=== PATIENT | male | born 1995 | race Caucasian/White ===

== ENCOUNTER 2017-12-19 21:51 | Emergency (ER) | payer OTHER, SELFPAY ==
[2017-12-19 22:33] VITALS: BP 99/56; PULSE 54; RESP 16; TEMP 36.3; O2SAT 100; BMI 22.8
--- NOTE | 2017-12-20 00:34 | ED_ITS ---
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 The edging on this tubing is very sharp. He brushed his right wrist against the tube. He sustained a laceration to the right ulnar wrist. Range of motion in the wrist is normal. He is right- hand dominant. There is no active bleeding or deformity. His tetanus is up-to- date. Related Data Previous Rx's Medication Instructions Recorded cephalexin [Keflex] 500 mg PO TID 5 Days #0 cap 07/03/16 diphenoxylate-atropine 1 tab PO Q4HP PRN #14 tab 01/16/17 Allergies Allergy/AdvReac Type Severity Reaction Status Date / Time Penicillins [PENICILLINS] Allergy Unknown Verified 12/19/17 22:38 Review of Systems Review of Systems All systems reviewed & are unremarkable except as noted in HPI and below Constitutional Reports as per HPI, Denies fatigue, Denies weakness and Reports other (No recent illness.) Musculoskeletal Denies numbness and Reports other Integumentary/Breasts Denies rash, Denies skin pain, Denies skin ulcer, Denies sores and Reports other (As noted in the right upper extremity notation) Neurologic Denies numbness and Denies weakness Endocrine Denies fatigue FOR[facility]LY [facility] Social History Smoking Status: Never smoker Exam Initial Vital Signs Initial Vital Signs: Vital Signs Temperature 97.4 F L 12/19/17 22:33 Pulse Rate 54 L 12/19/17 22:33 Respiratory Rate 16 12/19/17 22:33 Blood Pressure 99/56 L 12/19/17 22:33 Pulse Oximetry 100 12/19/17 22:33 Const General: cooperative and well developed Nutritional Appearance: well nourished Orientation: alert, awake and oriented x3 Skin General: no rashes or lesions noted Neuro General: alert, oriented x3, gait normal and no focal motor deficits Extrem General: other Procedures Laceration Repair Laceration 1: Site: other (wrist) Side (If applicable): right Size (cm): 9 Description: linear Depth: simple, single layer Local Anesthetic: lidocaine 1% Amount of anesthesia used (mL): 5 Pre-repair: wound explored, irrigated extensively and deep structures intact Skin layer closed with: nylon Size (cm): 5-0 Number of sutures: 18 Technique: simple, interrupted Course Vital Signs - 8 hr // 22:33 Temperature 97.4 F L Pulse Rate 54 L Respiratory Rate 16 Blood Pressure 99/56 L Pulse Oximetry 100 Discharge Plan Departure Patient Disposition: Home, Self-Care Clinical Impression: Laceration of right wrist Instructions: DI for Laceration Repair Activity Restrictions/Additional Instructions: Keep the bandage in place for 2 days. You may shower/cleanse the wound after 2 days. See your doctor for suture removal in 10 days. Return here if necessary. Prescriptions: No Action cephalexin [Keflex] 500 MG capsule 500 mg PO TID 5 Days Qty: 0 RF: 0 diphenoxylate-atropine 2.5 MG/0.025 MG tablet 1 tab PO Q4HP PRNQty: 14 RF: 0
[2017-12-20 01:56] VITALS: BP 104/68; PULSE 54; RESP 18; TEMP 36.3; O2SAT 99
== END 2017-12-20 01:57 | disposition home or self-care (01) ==
PROVIDERS: Emergency Provider Emergency Medicine
DX: S61.511A Laceration without foreign body of right wrist, initial encounter (principal); W26.9XXA Contact with unspecified sharp object(s), initial encounter; Y99.0 Civilian activity done for income or pay
CPT/HCPCS: 12004; 99282; 99283

== ENCOUNTER → 2018-09-19 15:36 | Outpatient (CLI) | payer OTHER, SELFPAY ==
--- NOTE | 2018-09-19 | DI.MRI.S_ITS ---
PROCEDURE: MR HEAD/BRAIN WO CON INDICATIONS: Headache TECHNIQUE: Noncontrast axial T1 spin echo, axial T2 fast spin echo, sagittal and axial FLAIR, coronal T2 fast spin echo, axial gradient echo, axial diffusion and ADC through the brain. The patient declined contrast administration. COMPARISON: [facility], CR, XR EYE FOREIGN BODY RT, 09/19/2018, 15:52. FINDINGS: Image quality: Excellent. CSF Spaces: Basal cisterns are patent. No extra-axial fluid collections. Ventricles are normal in size and shape. Brain: No intracranial masses or hemorrhage. Scherer/white matter interface is normal. Brainstem appears normal. Diffusion-weighted images demonstrate no acute ischemic insult. There are a few foci of T2 hyperintensity seen within the periventricular and deep white matter and also within the juxtacortical white matter. No involvement of the corpus callosum or brain stem can be seen. No involvement of the cerebellum is seen. Normal intravascular flow voids are present. Skull and face: Calvarium has normal marrow signal. Orbits appear normal. Sinuses: Sinuses and mastoids are clear. IMPRESSION: A cause of headaches is not observed. T2 hyperintense white matter lesions are seen. Differential diagnosis includes sequela of migraine headaches in this patient with this given history, a demyelinating process (including multiple sclerosis), diabetes, and Lyme disease. Dictated by: Haja Montilla M.D. on 09/19/2018 at 15:39 Approved by: Haja Montilla M.D. on 09/19/2018 at 15:41
--- NOTE | 2018-09-19 | DI.RAD.S_ITS ---
PROCEDURE: XR EYE FOREIGN BODY RT INDICATIONS: POSSIBLE METAL IN EYE IN BOTH EYES TECHNIQUE: A single view of the orbits was acquired. COMPARISON: None. FINDINGS: Soft tissues: No metallic foreign bodies are visualized around the orbits. Bones: Bony structures appear unremarkable. Visualized sinuses appear clear. IMPRESSION: No contraindication to MR scanning identified. Dictated by: Miguel Angel Rucker M.D. on 09/19/2018 at 16:05 Approved by: Miguel Angel Rucker M.D. on 09/19/2018 at 16:14
== END ==
PROVIDERS: Visit Provider Nurse Practitioner Family
DX: R51 Headache (principal); H53.8 Other visual disturbances; R41.3 Other amnesia; T15.91XA Foreign body on external eye, part unspecified, right eye, initial encounter
CPT/HCPCS: 70030; 70551

== ENCOUNTER → 2019-11-15 14:08 | Outpatient (CLI) | payer OTHER, SELFPAY ==
--- NOTE | 2019-11-15 | DI.US.S_ITS ---
PROCEDURE: US SOFT TISSUE HEAD AND NECK INDICATIONS: CHRONIC SIALOADENITIS TECHNIQUE: Real-time scanning was performed of the neck region of interest, with image documentation. COMPARISON: None. FINDINGS: Both parotid and submandibular glands demonstrate heterogeneous echotexture, raising possibility of diffuse inflammation. Shadowing echogenic foci present within both parotid glands may represent sialolithiasis measuring 4 x 2 x 4 mm on the right, and 3 x 2 x 2 mm on the left. There is possible mild dilatation of the right parotid duct measuring 2 mm. IMPRESSION: Sonographic findings suggest bilateral parotid sialolithiasis with possible mild dilatation of the right parotid duct as above. This could be more definitively assessed with CT as clinically necessary. Heterogeneous appearance of the parotid glands raises possibility of inflammation. Please correlate clinically Dictated by: Yon Hill M.D. on 11/15/2019 at 16:07 Approved by: Yon Hill M.D. on 11/15/2019 at 16:22
== END ==
PROVIDERS: Referring Provider Otolaryngology; Visit Provider Otolaryngology
DX: K11.23 Chronic sialoadenitis (principal)
CPT/HCPCS: 76536

== ENCOUNTER → 2020-10-31 08:58 | Outpatient (CLI) | payer OTHER, SELFPAY ==
--- NOTE | 2020-10-31 09:00 | DI.RAD.S_ITS ---
PROCEDURE: XR KNEE RT 3V INDICATIONS: RIGHT KNEE PAIN TECHNIQUE: 3 views of the knee were acquired. COMPARISON: None. FINDINGS: Bones: No fractures or dislocations. No suspicious bony lesions. Soft tissues: No joint effusion. No suspicious soft tissue calcifications. IMPRESSION: No fracture. No osseous lesion. If symptoms and/or clinical suspicion for pathology persists, further assessment with repeat radiographs (7-10 days) or advanced imaging (e.g. CT, MRI or bone scan) should be considered. Dictated by: Ginny Brito MD, PhD on 10/31/2020 at 9:17 Approved by: Ginny Brito MD, PhD on 10/31/2020 at 9:26
== END ==
PROVIDERS: Referring Provider Physician Assistant; Visit Provider Physician Assistant
DX: M25.561 Pain in right knee (principal)
CPT/HCPCS: 73562

== ENCOUNTER → 2021-01-17 10:37 | Outpatient (CLI) | payer OTHER, SELFPAY ==
--- NOTE | 2021-01-17 10:39 | DI.MRI.S_ITS ---
PROCEDURE: MR KNEE RT WO CON INDICATIONS: TEAR TECHNIQUE: Noncontrast sagittal PD fast spin echo and T2 fast spin echo with fat saturation, sagittal 3-D FLASH with fat saturation; coronal T1 spin echo and PD fast spin echo with fat saturation, and axial PD fast spin echo with fat saturation through the knee. COMPARISON: None. FINDINGS: Menisci: Medial meniscus: Oblique undersurface tear involving the body. Lateral meniscus: Intact. Cruciate ligaments: Anterior cruciate ligament: Intact. Posterior cruciate ligament: Intact. Medial structures: The medial collateral ligament: Intact. Semimembranosus tendon: Intact. Visualized pes anserinus tendons: Intact. Bursal fluid: none. Lateral structures: The lateral collateral ligament intact. Biceps femoris tendon appears intact. Popliteus tendon grossly unremarkable. Iliotibial band appears intact. Anterior structures: Quadriceps tendon: Intact. Medial patellofemoral ligament: Intact. Lateral patellofemoral ligament: Intact. Patellar tendon: Mild proximal tendinopathy. Anterior soft tissues: Prepatellar and superficial infrapatellar subcutaneous edema/fluid. Deep infrapatellar region: Normal. Bones and cartilage: Marrow: No focal marrow contusion or discrete low signal fracture line. Medial compartment: Mild partial thickness loss of the central weight-bearing femoral and tibial cartilage. Lateral compartment: No focal cartilage defect. Patellofemoral compartment: No chondral defect Joint space: Effusion: Small joint effusion. Popliteal fossa: Small Grover's cyst measuring 3 cm in the cephalocaudal dimension. Loose bodies: None. IMPRESSION: Medial meniscal tear involving the body. Mild proximal patellar tendinopathy Mild medial compartment joint degeneration Small joint effusion Small Grover's cyst. 2 Dictated by: Yon Hill M.D. on 01/19/2021 at 8:35 Approved by: Yon Hill M.D. on 01/19/2021 at 8:41
--- NOTE | 2021-01-17 10:40 | DI.RAD.S_ITS ---
PROCEDURE: XR ORBIT RT INDICATIONS: EXAMINATION PRE MRI TECHNIQUE: Single views of the orbits acquired. COMPARISON: None. FINDINGS: Bones: No fractures; orbital rims appear intact throughout. No suspicious bony lesions. Visualized sinuses appear clear. Soft tissues: No suspicious soft tissue calcifications or densities. IMPRESSION: No evidence of radiopaque foreign body. Patient is cleared for MRI Approved by: Soto Mai M.D. on 01/17/2021 at 10:25
--- NOTE | 2021-01-17 10:40 | DI.RAD.S_ITS ---
PROCEDURE: XR ORBIT LT INDICATIONS: EXAMINATION PRE MRI TECHNIQUE: Single views of the orbits acquired. COMPARISON: None. FINDINGS: Bones: No fractures; orbital rims appear intact throughout. No suspicious bony lesions. Visualized sinuses appear clear. Soft tissues: No suspicious soft tissue calcifications or densities. IMPRESSION: No evidence of radiopaque foreign body Approved by: Soto Mai M.D. on 01/17/2021 at 10:24
== END ==
PROVIDERS: Referring Provider Orthopaedic Surgery; Visit Provider Orthopaedic Surgery
DX: S83.281A Other tear of lateral meniscus, current injury, right knee, initial encounter (principal); M17.11 Unilateral primary osteoarthritis, right knee; M25.461 Effusion, right knee; M71.21 Synovial cyst of popliteal space [Baker], right knee; Z13.5 Encounter for screening for eye and ear disorders
CPT/HCPCS: 70200; 73721

== ENCOUNTER → 2021-08-03 13:48 | Outpatient (CLI) | payer OTHER, SELFPAY ==
[2021-08-03 16:48] LABS: COVID19 -Nasal RAPID Negative (Negative)
== END ==
PROVIDERS: Referring Provider Family Medicine Sleep Medicine; Visit Provider Family Medicine Sleep Medicine
DX: Z20.822 Contact with and (suspected) exposure to COVID-19 (principal)
CPT/HCPCS: 87635; C9803

== ENCOUNTER 2021-08-05 14:15 | Day surgery (SDC) | payer OTHER, SELFPAY ==
[2021-07-31 09:09] VITALS: BMI 25.2
[2021-08-05] VITALS (8 sets, daily range): BP systolic 82–121; BP diastolic 41–90; PULSE 50–62; RESP 11–16; TEMP 36.4–37.3; O2SAT 96–100; BMI 25.2
[2021-08-05] MEDS: LACTATED RINGERS 1,000 ML 84 ML IV ×2 (15:15→16:50)
--- NOTE | 2021-08-05 15:17 | PM.PREOP ---
Pre-operative Note COVID-19 COVID-19 status: Negative Result date/Date tested (Pos, Neg/Pending): 08/03/21 Criteria for continued procedure: Continuing or worsening of significant or severe pain and Non-surgical alternatives not available or appropriate per current SOC Interval Note History & Physical reviewed/Exam performed by Physician: Yes Changes to H&P: No
[2021-08-05] MEDS: CEFAZOLIN 2 GM/20 ML SYRINGE IV (15:55)
--- NOTE | 2021-08-05 16:08 | SUR.OPER ---
Supine on padded OR bed, head on pillow, arms secured on padded arm boards at <90 degrees abduction, legs uncrossed, safety belt at thigh, tape over blanket over lower legs.
[2021-08-05] MEDS: BUPIVACAINE 0.5% (PF) VIAL 30 ML INJ (16:25)
[2021-08-05] MEDS: MORPHINE 4 MG/ML INJ IM (16:25)
--- NOTE | 2021-08-05 16:42 | P.OP_ITS ---
Operative Date/Time/Diagnoses Date of procedure: 08/05/21 Time of procedure: 16:42 Pre-op diagnosis: Left knee medial meniscus tear and possible plica syndrome Post-op diagnosis: other (No plica syndrome) Procedure & Clinicians Procedure: Left knee arthroscopic partial medial meniscectomy Same procedure as scheduled: Yes Indications: The patient is a 26-year-old gentleman who injured his knee at work. He has not responded to non operative measures. After discussion the risks benefits and alternatives he has agreed to knee arthroscopy. He has an MRI which shows a medial meniscus tear. Risks discussed included but were not limited to: Failure to improve, stiffness, infection, nerve damage, deep venous thrombosis, pulmonary embolism, stroke, myocardial infarction, permanent paralysis, aspiration pneumonia and . Surgeon: Mirza Stevenson Click Yes if Unassisted: Yes Anesthesia Type: Spinal and Local Operative Notes Findings: 1. Normal suprapatellar pouch with the exception of a small suprapatellar plica which was excised incidentally. 2. Normal patellofemoral joint, no significant inflammation at the medial shelf plica. 3. Normal medial and lateral gutters. 4. Medial compartment notable for complex posterior horn medial meniscus tear part of this was hinged on the midportion of the meniscus and had flipped down into the tibial gutter below the joint line. 5. Intercondylar notch notable for normal ACL and normal visualized portion of the PCL. 6. Lateral compartment normal 7. Posterolateral compartment normal 8. Posterior medial compartment normal Closure Type: primary Specimen(s): none sent Estimated Blood Loss (mL): 10 Blood products transfused: none Tourniquet time (min): 0 Procedure in detail: Patient was seen in the preoperative area where he identified his left knee as the operative site this was marked with my initials. He was taken to the operating room and placed on the operating room table in a supine position where he underwent induction of a general anesthetic. He received preoperative antibiotics. A tourniquet was placed about his proximal left thigh. A manager multimedia-out was performed. His leg was prepared from the toes to the tourniquet with ChloraPrep in the usual fashion draped through sterile drapes. A superior medial portal was created for the pump cannula and the knee expanded with arthroscopic fluid. A lateral portal was created for the arthroscope and diagnostic arthroscopy was performed in the standard order with result given above. During diagnostic arthroscopy a medial portal was created for the probe and other tools. The 4.2 mm meniscal shaver was then inserted and used to excise the unstable flaps of the posterior horn of the medial meniscus. This was debrided back to a stable base. The shaver was then inserted in the suprapatellar pouch in used to excise a small ribbon of plica at the lateral aspect of the joint. The medial shelf plica had been inspected and there was no need for plica excision there. At this point all arthroscopic equipment was removed from the joint, the wounds were closed with 4-0 Monocryl and Steri- Strips. The knee was injected with a total of 20 mL 0.5% Marcaine and 4 mg of morphine for postoperative pain control. Dressings of sterile 4x4s, sterile cast padding and an Farhad wrap were applied. The patient was then transported to the recovery room in good condition having tolerated the procedure well. Complications: none Post-operative Condition: stable Disposition: PACU Plan for aftercare: The patient will be discharged today. He will be allowed to resume activities as tolerated. He will be weight-bearing as tolerated.
[2021-08-05] MEDS: ONDANSETRON 4 MG/2 ML INJ IV (16:58)
[2021-08-05] MEDS: HYDROCODONE/ACET 5/325 TABLET 1 TAB PO (17:20)
== END 2021-08-05 17:50 | disposition home or self-care (01) ==
PROVIDERS: Referring Provider Orthopaedic Surgery; Visit Provider Orthopaedic Surgery
PROC: (CPT 29870; principal; 2021-08-05 15:45)
DX: S83.242A Other tear of medial meniscus, current injury, left knee, initial encounter (principal)
CPT/HCPCS: 29881; J0690; J2250; J2270; J2405; J2704; J3010

== ENCOUNTER 2021-11-05 19:28 | Emergency (ER) | payer OTHER, SELFPAY ==
[2021-11-05 19:40] VITALS: BP 115/61; PULSE 67; RESP 16; TEMP 36.6; O2SAT 98; BMI 24.6
== END 2021-11-05 19:40 | disposition left against medical advice (07) ==
PROVIDERS: Emergency Provider Emergency Medicine
CPT/HCPCS: 99281

== ENCOUNTER → 2022-12-10 07:07 | Outpatient (CLI) | payer OTHER, SELFPAY ==
--- NOTE | 2022-12-10 | DI.MRI.S_ITS ---
PROCEDURE: MR SHOULDER LT WO CON INDICATIONS: Strain of muscle, fascia and tendon of long head o TECHNIQUE: Noncontrast oblique coronal T2 fast spin echo with fat saturation, oblique sagittal T1 spin echo and T2 fast spin echo with fat saturation, axial T1 spin echo and T2 fast spin echo with fat saturation through the shoulder. COMPARISON: None. FINDINGS: Image quality: Excellent. Rotator cuff: Low-grade articular and bursal surface partial thickness tear involving distal supraspinatus at its insertion on the humeral head is seen extending to musculotendinous junction. Low-grade bursal surface partial-thickness tear involving distal infraspinatus near its insertion on the humeral head is also noted. The subscapularis tendon is intact. No full-thickness rotator cuff tendon rupture. Sagittal images demonstrate no significant rotator cuff muscle atrophy. Bones and bursae: No bone marrow contusions or fractures. No acromioclavicular joint degeneration. The acromion demonstrates conventional anatomy, without an os acromiale. Small amount of subacromial subdeltoid bursal fluid is seen. Capsule and soft tissues: Subtle signal abnormality and fraying of superior anterior labrum at 12 to 1 o'clock position is noted concerning for subtle superior anterior labral tear. The long head of the biceps tendon demonstrates normal location and morphology. The rotator interval appears normal, without fibrosis. The coracohumeral ligament is normal in thickness. IMPRESSION: 1. Low-grade articular and bursal surface partial thickness tear involving distal supraspinatus extending to musculotendinous junction. Low-grade bursal surface partial thickness tear involving distal infraspinatus. No full-thickness rotator cuff tendon rupture. 2. No marrow edema. No fracture or dislocation. Small amount of subacromial subdeltoid bursal fluid. 3. Suggestion of subtle superior anterior labral tear at 12 to 1 o'clock position. Dictated by: Lamine Valle M.D. on 12/10/2022 at 10:19 Approved by: Lamine Valle M.D. on 12/10/2022 at 10:47
== END ==
PROVIDERS: Referring Provider Orthopaedic Surgery; Visit Provider Orthopaedic Surgery
DX: S46.112A Strain of muscle, fascia and tendon of long head of biceps, left arm, initial encounter (principal); S46.012A Strain of muscle(s) and tendon(s) of the rotator cuff of left shoulder, initial encounter; M24.012 Loose body in left shoulder
CPT/HCPCS: 73221